=== PATIENT | male | born 1945 | race Caucasian/White ===

== ENCOUNTER → 2018-03-18 | Outpatient (CLI) | payer MEDICARE | END | disposition home or self-care (01) | LOC: RAD 15:25 | PROVIDERS: ATTEND Neurological Surgery | DX: M47.817 Spondylosis without myelopathy or radiculopathy, lumbosacral region (principal); M41.86 Other forms of scoliosis, lumbar region | CPT/HCPCS: 72110 ==

== ENCOUNTER → 2018-05-20 | Outpatient (CLI) | payer MEDICARE | END | disposition home or self-care (01) | LOC: CFH 15:58 | PROVIDERS: ATTEND Neurological Surgery | DX: M25.551 Pain in right hip (principal); M25.552 Pain in left hip; M54.5 Low back pain | CPT/HCPCS: 73523 ==

== ENCOUNTER 2018-06-25 15:56 | Emergency (ER) | payer MEDICARE ==
[~2018-06-25] VITALS: Ht 203.2 cm; Wt 186.5 kg
--- NOTE | 2018-06-25 16:29 | NUR ---
PT PRESENTS TO ED WITH C/O RIGHT LOWER LEG REDNESS AND PAIN X 3 WEEKS, +3 PEDAL PULSE NOTED. PT ALSO NOTES SOB WITH EXERTION STARTING TODAY, DENIES CHEST PRESSURE/PAIN. PT A&O, RESPS EVEN AND UNLABORED. EKG TAKEN IN TRIAGE. ALL MONITORS APPLIED. PT PROVIDED WITH WARM BLANKET. CALL LIGHT IN REACH. AWAITING MD AND ORDERS.
--- NOTE | 2018-06-25 16:35 | NUR ---
THELMA OLMSTEAD AT BEDSIDE.
[2018-06-25] MEDS ORDERED: HYDR-3307 PO (17:18)
[2018-06-25] MEDS ORDERED: EXEN2PEN SQ (17:18)
[2018-06-25] MEDS ORDERED: CARV12.52 PO (17:18)
[2018-06-25] MEDS ORDERED: ATOR20TA37 PO (17:18)
[2018-06-25] MEDS ORDERED: MAGNESIUM PO (17:18)
[2018-06-25] MEDS ORDERED: DILTIAZEM PO (17:18)
[2018-06-25] MEDS ORDERED: HYDR-3342 PO (17:18)
[2018-06-25] MEDS ORDERED: INSULIN 70/30 SQ (17:18)
[2018-06-25] MEDS ORDERED: APIX5TAB PO (17:18)
[2018-06-25] MEDS ORDERED: GLIP10TA13 PO (17:18)
[2018-06-25] MEDS ORDERED: MULT-516 PO (17:18)
[2018-06-25] MEDS ORDERED: FURO20TA3 PO (17:18)
[2018-06-25] MEDS ORDERED: OMEPRAZOLE DR PO (17:18)
[2018-06-25] MEDS ORDERED: GABA300C10 PO (17:18)
[2018-06-25] MEDS ORDERED: TAMSULOSIN PO (17:18)
[2018-06-25] MEDS ORDERED: LOSA50TA14 PO (17:18)
--- NOTE | 2018-06-25 17:19 | NUR ---
PT RESTING ON GURNEY, A&O, RESPS EVEN AND UNLABORED. 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 PT HAS NO COMPLAINT AT THIS TIME, AWAITING US AND DISPO.
[2018-06-25 17:30] LABS: BASOPHILS # (AUTO) 0.02 x10^3/uL (0-0.1); BASOPHILS % (AUTO) 0 % (0-1); EOSINOPHILS % (AUTO) 4 % (1-7); LYMPHOCYTES # (AUTO) 2.26 x10^3/uL (1-3.4); LYMPHOCYTES % (AUTO) 22 % (22-44); MD NO; MEAN CORPUSCULAR HEMOGLOBIN 31.1 pg (27.5-34.5); MEAN CORPUSCULAR HGB CONC 33.7 g/dL (33.2-36.2); MEAN CORPUSCULAR VOLUME 92.3 fL (81-97); MEAN PLATELET VOLUME 7.9 fL (7.4-10.4); MONOCYTES # (AUTO) 0.88 x10^3/uL (0.2-0.8); MONOCYTES % (AUTO) 9 % (2-9); NEUTROPHILS # (AUTO) 6.64 x10^3/uL (1.8-6.8); NEUTROPHILS % (AUTO) 65 % (42-75); PLATELET COUNT 252 x10^3/uL (130-400); RED BLOOD COUNT 4.52 x10^6/uL (4.38-5.82); RED CELL DISTRIBUTION WIDTH 13.9 % (9.4-14.8)
[2018-06-25 17:36] LABS: INTERNATIONAL NORMALIZED RATIO 0.93 (0.93-1.1); PROTHROMBIN TIME 9.8 Seconds (9.6-11.5)
[2018-06-25 17:38] LABS: ALBUMIN 3.5 g/dL (3.4-5.0); ANION GAP 5 mmol/L (5-15); CALCIUM 8.9 mg/dL (8.5-10.1); CHLORIDE 107 mmol/L (98-107); CREATININE 1.12 mg/dL (0.7-1.3)
[2018-06-25 18:00] VITALS: BP 134/62
--- NOTE | 2018-06-25 18:41 | NUR ---
pt given dc instructions and script. pt eduated regarding dc rx for omnicef. pt a&o, resps even and unlabored, nadn at dc. pt amb to dc desk with steady gait, accompanied by .
== END 2018-06-25 18:41 | disposition home or self-care (01) ==
LOC: ED 17:27
DX: L03.115 Cellulitis of right lower limb (principal); E11.9 Type 2 diabetes mellitus without complications; I25.2 Old myocardial infarction; I48.91 Unspecified atrial fibrillation
CPT/HCPCS: 36415; 71045; 80048; 82040; 85025; 85610; 93005; 99284

== ENCOUNTER 2018-07-10 06:12 | Observation (INO) | payer MEDICARE ==
[~2018-07-10] VITALS: Ht 203.2 cm; Wt 160.2 kg
[~2018-07-10 06:12] MED LIST: APIX5TAB PO; ATOR20TA37 PO; CARV12.52 PO; DILTIAZEM PO; EXEN2PEN SQ; FURO20TA3 PO; GABA300C10 PO; GLIP10TA13 PO; HYDR-3307 PO; HYDR-3342 PO; INSULIN 70/30 SQ; LOSA50TA14 PO; MAGNESIUM PO; MULT-516 PO; OMEPRAZOLE DR PO; TAMSULOSIN PO
[2018-07-10] MEDS ORDERED: ASPIRIN 81 MG TABLET CHEW PO ONE (06:30)
[2018-07-10] MEDS ORDERED: MORPHINE SULFATE 4 MG/ML, 1ML IVPush ONE (06:30)
[2018-07-10] MEDS ORDERED: SODIUM CHLORIDE FLUSH 10ML SYR IVF ONE (06:30)
--- NOTE | 2018-07-10 06:30 | NUR ---
FIRST CONTACT WITH PT. PT C/O CP RADIATING TO BACK SINCE LAST NIGHT. PAIN LEVEL IS 10/10 AT THIS TIME. PT DENIES N/V/D NOW. PT HAS HX OF A-FIB/OK. NSR ON FIRST DYER WITHOUT ECTOPY RATE 80'S AT THIS TIME. PT'S AOX4. RESPS EVEN AND UNLABORED. ALL MONITORS IN PLACE. CALL LIGHT WITHIN REACH. AWAITING EDMD ASSESSMENT.
--- NOTE | 2018-07-10 06:36 | NUR ---
PT IN CT NOW.
[2018-07-10] MEDS ORDERED: MORPHINE SULFATE 4 MG/ML, 1ML ONE (06:39)
[2018-07-10] MEDS ORDERED: ASPIRIN 81 MG TABLET CHEW ONE (06:39)
[2018-07-10 06:48] LABS: BASOPHILS # (AUTO) 0.05 x10^3/uL (0-0.1); BASOPHILS % (AUTO) 1 % (0-1); EOSINOPHILS # (AUTO) 0.26 x10^3/uL (0-0.4); EOSINOPHILS % (AUTO) 2 % (1-7); LYMPHOCYTES # (AUTO) 2.78 x10^3/uL (1-3.4); LYMPHOCYTES % (AUTO) 24 % (22-44); MD NO; MEAN CORPUSCULAR HEMOGLOBIN 31.1 pg (27.5-34.5); MEAN CORPUSCULAR VOLUME 91.6 fL (81-97); MEAN PLATELET VOLUME 7.9 fL (7.4-10.4); MONOCYTES # (AUTO) 0.97 x10^3/uL (0.2-0.8); MONOCYTES % (AUTO) 8 % (2-9); NEUTROPHILS # (AUTO) 7.52 x10^3/uL (1.8-6.8); NEUTROPHILS % (AUTO) 65 % (42-75); PLATELET COUNT 313 x10^3/uL (130-400); RED BLOOD COUNT 4.64 x10^6/uL (4.38-5.82); RED CELL DISTRIBUTION WIDTH 14.2 % (9.4-14.8)
--- NOTE | 2018-07-10 06:48 | NUR ---
PT MEDICATED PER EMAR. PT TOLERATED WELL.
[2018-07-10] MEDS ORDERED: OMNIPAQUE 350 MG/ML, 150 ML BOTTLE ONE (06:55)
[2018-07-10 07:00] LABS: ALANINE AMINOTRANSFERASE 25 U/L (12-78); ALBUMIN 3.7 g/dL (3.4-5.0); ANION GAP 9 mmol/L (5-15); CALCIUM 9.1 mg/dL (8.5-10.1); CHLORIDE 108 mmol/L (98-107); CREATININE 1.37 mg/dL (0.7-1.3)
--- NOTE | 2018-07-10 07:03 | NUR ---
report given to jesse mark.
[2018-07-10 07:05] LABS: ALKALINE PHOSPHATASE 93 U/L (45-117); BILIRUBIN,TOTAL 0.5 mg/dL (0.2-1.0); TOTAL PROTEIN 7.3 g/dL (6.4-8.2); TROPONIN I < 0.015 ng/mL (0.000-0.045)
--- NOTE | 2018-07-10 07:40 | NUR ---
REC BS REPORT PT RESTING A04 UP TO BS FOR UA IN URINAL PT STABLE PILLOW PROVIDED AND FLUIDS
[2018-07-10] MEDS ORDERED: MAALOX/HYOSCYAMINE/LIDOCAINE 45 ML BTL PO ONE ×2 (08:00→09:30)
[2018-07-10] MEDS ORDERED: INSULIN SQ SCH (09:30)
[2018-07-10] MEDS ORDERED: NITROGLYCERIN 0.4 MG/SPRAY SL PRN (09:30)
[2018-07-10] MEDS ORDERED: ACETAMINOPHEN 325 MG TABLET PO PRN (09:30)
[2018-07-10] MEDS ORDERED: morphine SULFATE 10 MG/ML, 1ML IVPush PRN (09:30)
[2018-07-10] MEDS ORDERED: HYDROcodone/APAP 10/325 MG TABLET PO PRN (09:30)
[2018-07-10] MEDS ORDERED: AMIODARONE 200 MG TABLET ONE (09:41)
[2018-07-10] MEDS ORDERED: GABAPENTIN 300 MG CAPSULE ONE (09:55)
[2018-07-10] MEDS ORDERED: MAALOX/HYOSCYAMINE/LIDOCAINE 45 ML BTL ONE (09:55)
[2018-07-10] MEDS ORDERED: CEFTRIAXONE PMX 2GM/50ML 50 ML ONE (09:55)
[2018-07-10 09:59] LABS: TROPONIN I < 0.015 ng/mL (0.000-0.045)
[2018-07-10] MEDS: GABAPENTIN 300 MG CAPSULE PO SCH ×3 (10:01→20:57)
[2018-07-10] MEDS: CEFTRIAXONE PMX 2GM/50ML 50 ML IV SCH (10:11)
[2018-07-10 10:33] LABS: HEMOGLOBIN A1C 7.6 % (4.2-6.3)
[2018-07-10] MEDS: LOSARTAN 50MG TABLET PO SCH (10:53)
[2018-07-10] MEDS: CARVEDILOL 6.25 MG TABLET PO SCH ×2 (10:53→21:01)
[2018-07-10] MEDS: MULTIVITAMIN 1 TABLET PO SCH (10:54)
[2018-07-10 11:54] VITALS: BP 149/61
[2018-07-10 12:03] VITALS: BP 150/72
[2018-07-10] MEDS: INSULIN LISPRO 100 UNITS/ML, PEN SQ-INSULIN SCH ×3 (13:00→20:56)
[2018-07-10] MEDS: TAMSULOSIN 0.4 MG CAP.ER.24H PO SCH (15:40)
[2018-07-10] MEDS: LACTOBACILLUS CHEW TABLET PO SCH ×2 (15:40→20:57)
[2018-07-10] MEDS: OMEPRAZOLE 20 MG CAPSULE.DR PO SCH (15:42)
[2018-07-10] MEDS: MAGNESIUM OXIDE 400 MG TABLET PO SCH (15:43)
[2018-07-10] MEDS: ISOSORBIDE DINITRATE 10 MG TABLET PO SCH ×2 (15:46→21:01)
[2018-07-10 16:07] LABS: TROPONIN I < 0.015 ng/mL (0.000-0.045)
[2018-07-10] MEDS: INSULIN HUMULIN 70/30, 3ML PEN SQ-INSULIN SCH (17:31)
[2018-07-10 19:27] VITALS: BP 144/73
[2018-07-10 20:53] VITALS: BP 122/71
[2018-07-10] MEDS ORDERED: ATORVASTATIN 20 MG TABLET PO SCH (21:00)
[2018-07-10] MEDS: APIXABAN 5 MG TABLET PO SCH (21:01)
[2018-07-10] MEDS ORDERED: MELATONIN 5 MG TABLET PO PRN (22:30)
[2018-07-11] MEDS ORDERED: CALCIUM CARBONATE 500 MG TAB.CHEW PO PRN
[2018-07-11 00:26] VITALS: BP 145/80
[2018-07-11 05:16] LABS: BASOPHILS # (AUTO) 0.08 x10^3/uL (0-0.1); BASOPHILS % (AUTO) 1 % (0-1); EOSINOPHILS % (AUTO) 3 % (1-7); LYMPHOCYTES # (AUTO) 2.34 x10^3/uL (1-3.4); LYMPHOCYTES % (AUTO) 25 % (22-44); MD NO; MEAN CORPUSCULAR HGB CONC 33.8 g/dL (33.2-36.2); MEAN CORPUSCULAR VOLUME 91.7 fL (81-97); MEAN PLATELET VOLUME 7.8 fL (7.4-10.4); MONOCYTES # (AUTO) 0.92 x10^3/uL (0.2-0.8); MONOCYTES % (AUTO) 10 % (2-9); NEUTROPHILS # (AUTO) 5.65 x10^3/uL (1.8-6.8); NEUTROPHILS % (AUTO) 61 % (42-75); PLATELET COUNT 274 x10^3/uL (130-400); RED BLOOD COUNT 4.35 x10^6/uL (4.38-5.82); RED CELL DISTRIBUTION WIDTH 14.2 % (9.4-14.8)
[2018-07-11 05:35] LABS: CHLORIDE 109 mmol/L (98-107)
[2018-07-11 05:57] LABS: ANION GAP 8 mmol/L (5-15); CALCIUM 8.9 mg/dL (8.5-10.1); CREATININE 1.39 mg/dL (0.7-1.3)
[2018-07-11] MEDS: INSULIN LISPRO 100 UNITS/ML, PEN SQ-INSULIN SCH ×2 (07:00→12:18)
[2018-07-11 07:39] VITALS: BP 141/83
[2018-07-11] MEDS: INSULIN HUMULIN 70/30, 3ML PEN SQ-INSULIN SCH (08:00)
[2018-07-11] MEDS ORDERED: REGADENOSON 0.4 MG/5 ML SYRINGE ONE (08:12)
[2018-07-11] MEDS: GABAPENTIN 300 MG CAPSULE PO SCH ×2 (08:24→17:09)
[2018-07-11] MEDS: OMEPRAZOLE 20 MG CAPSULE.DR PO SCH (08:24)
[2018-07-11] MEDS ORDERED: SENNA/DOCUSATE TABLET PO SCH (09:00)
[2018-07-11] MEDS: APIXABAN 5 MG TABLET PO SCH (10:38)
[2018-07-11] MEDS: MULTIVITAMIN 1 TABLET PO SCH (10:38)
[2018-07-11] MEDS: LACTOBACILLUS CHEW TABLET PO SCH ×2 (10:38→17:08)
[2018-07-11] MEDS: MAGNESIUM OXIDE 400 MG TABLET PO SCH (10:38)
[2018-07-11] MEDS: TAMSULOSIN 0.4 MG CAP.ER.24H PO SCH (10:39)
[2018-07-11] MEDS: LOSARTAN 50MG TABLET PO SCH (10:39)
[2018-07-11] MEDS: CARVEDILOL 6.25 MG TABLET PO SCH (10:39)
[2018-07-11] MEDS: ISOSORBIDE DINITRATE 10 MG TABLET PO SCH (10:42)
[2018-07-11] MEDS: CEFTRIAXONE PMX 2GM/50ML 50 ML IV SCH (11:17)
[2018-07-11 13:35] VITALS: BP 130/65
[2018-07-11] MEDS ORDERED: ACID1TAB7 PO (15:59)
[2018-07-11] MEDS ORDERED: CALC200T24 PO (15:59)
[2018-07-11] MEDS ORDERED: CARV12.52 PO (15:59)
[2018-07-11] MEDS ORDERED: INSU100I11 SQ-INSULIN (15:59)
[2018-07-15] MEDS ORDERED: EXENATIDE MICROSPHERES 2 MG SQ SCH (09:00)
== END 2018-07-11 17:55 | disposition home or self-care (01) ==
LOC: ED 06:35 → INTOOBSV 07:42 → UNDOADMOB 07:42 → EDIP 07:42 → 5SO 11:52 → EDIP 11:52 → 5SO 11:52 → UNDODISOB 07-11 17:55
PROVIDERS: ADMIT Internal Medicine; ATTEND Internal Medicine
DX: R07.9 Chest pain, unspecified (principal); N17.9 Acute kidney failure, unspecified; L03.115 Cellulitis of right lower limb; I25.2 Old myocardial infarction; I48.91 Unspecified atrial fibrillation; I70.0 Atherosclerosis of aorta; K21.9 Gastro-esophageal reflux disease without esophagitis; R13.10 Dysphagia, unspecified; E66.01 Morbid (severe) obesity due to excess calories; R91.1 Solitary pulmonary nodule; I12.9 Hypertensive chronic kidney disease with stage 1 through stage 4 chronic kidney disease, or unspecified chronic kidney disease; N18.3 Chronic kidney disease, stage 3 (moderate); E11.22 Type 2 diabetes mellitus with diabetic chronic kidney disease; Z79.01 Long term (current) use of anticoagulants; Z68.38 Body mass index [BMI] 38.0-38.9, adult; Z80.52 Family history of malignant neoplasm of bladder; Z83.3 Family history of diabetes mellitus
CPT/HCPCS: 36415; 71045; 71275; 74174; 74220; 78452; 80048; 80053; 82962; 83036; 83880; 84484; 85025; 93005; 96365; 96366; 96372; 96375; 99284; A9502; C9898; G0378; J0696; J1815; Q9967; 99285; J2785

== ENCOUNTER → 2020-03-20 | Outpatient (CLI) | payer MEDICARE ==
[~2020-03-20] MED LIST changes: +ACID1TAB7 PO; +CALC200T24 PO; +CARV6.2512 PO; +GABA-827 PO; +HYDR-3246 PO; -HYDR-3307 PO; +INSU100I11 SQ-INSULIN; +INSULIN SC; +LOSA25TA25 PO; +MAGN250T8 PO; +TAMS-11 PO
[2020-03-20 13:43] LABS: MICROSCOPIC AUTO
[2020-03-20 13:52] LABS: ALBUMIN 3.7 g/dL (3.4-5.0); ANION GAP 6 mmol/L (5-15); CALCIUM 9.1 mg/dL (8.5-10.1); CHLORIDE 112 mmol/L (98-107)
[2020-03-20 13:55] LABS: ALANINE AMINOTRANSFERASE 28 U/L (12-78); ALKALINE PHOSPHATASE 92 U/L (45-117); BILIRUBIN,TOTAL 0.6 mg/dL (0.2-1.0); CREATININE 1.19 mg/dL (0.7-1.3); TOTAL PROTEIN 6.9 g/dL (6.4-8.2)
== END | disposition home or self-care (01) ==
LOC: STAR 12:15
PROVIDERS: ATTEND Urology
DX: Z01.812 Encounter for preprocedural laboratory examination (principal); Z20.828 Contact with and (suspected) exposure to other viral communicable diseases; N35.919 Unspecified urethral stricture, male, unspecified site
CPT/HCPCS: 80053; 81001; 87086; 87635; 93005

== ENCOUNTER 2020-03-26 06:37 | Day surgery (SDC) | payer MEDICARE ==
[~2020-03-26] VITALS: Ht 203.2 cm; Wt 166.0 kg
[2020-03-26] MEDS ORDERED: CHLORHEXIDINE 15 ML UDC MM ONE (07:00)
[2020-03-26] MEDS ORDERED: LACTATED RINGERS 1,000 ML IV SCH (07:00)
[2020-03-26 07:20] VITALS: BP 151/74
[2020-03-26] MEDS ORDERED: FENTANYL PF 250 MCG/5ML ONE (08:14)
[2020-03-26] MEDS ORDERED: LIDOCAINE-MPF 2% ,5ML ONE (08:27)
[2020-03-26] MEDS ORDERED: PROPOFOL 10 MG/ML, 20ML ONE ×2 (08:27)
[2020-03-26] MEDS ORDERED: ROCURONIUM 10MG/ML,5ML ONE (08:27)
[2020-03-26] MEDS ORDERED: SUCCINYLCHOLINE 20 MG/ML, 10ML ONE (08:27)
[2020-03-26] MEDS ORDERED: ONDANSETRON 2MG/ML, 2ML ONE (08:27)
[2020-03-26] MEDS ORDERED: GLYCOPYRROLATE 0.2MG/1ML, 5ML ONE (08:27)
[2020-03-26] MEDS ORDERED: CEFAZOLIN 1,000 MG ONE (08:27)
[2020-03-26] MEDS ORDERED: PHENYLEPHRINE 10 MG/ML ONE (08:27)
[2020-03-26] MEDS ORDERED: NEOSTIGMINE 1 MG/ML, 10ML ONE (08:27)
[2020-03-26] MEDS ORDERED: MEPERIDINE/PF 25MG/0.5ML IVPush PRN (08:30)
[2020-03-26] MEDS ORDERED: hydrALAzine 20 MG/ML, 1ML IV PRN (08:30)
[2020-03-26] MEDS ORDERED: EPHEDRINE 50 MG/ML, 1ML IVPush PRN (08:30)
[2020-03-26] MEDS ORDERED: OXYcodone 5 MG/5 ML ORAL.SOL UDC PO PRN (08:30)
[2020-03-26] MEDS ORDERED: METHOCARBAMOL 1,000 MG in DEXTROSE 5% 100 ML IV PRN (08:30)
[2020-03-26] MEDS ORDERED: PROMETHAZINE 25 MG/ML, 1ML IVPush PRN (08:30)
[2020-03-26] MEDS ORDERED: ONDANSETRON 2MG/ML, 2ML IVPush PRN (08:30)
[2020-03-26] MEDS ORDERED: LABETALOL 5MG/ML, 20ML IV PRN (08:30)
[2020-03-26] MEDS ORDERED: HYDROmorphone 1 MG/ML, 1ML INJ IVPush PRN (08:30)
[2020-03-26] MEDS ORDERED: ACETAMINOPHEN 325 MG TABLET PO PRN (08:30)
[2020-03-26] MEDS ORDERED: FENTANYL PF 100 MCG/2ML IV PRN (08:30)
[2020-03-26] MEDS ORDERED: OPIUM/BELLADONNA SUPP.RECT 16.2-60 MG PR PRN (09:30)
[2020-03-26] MEDS ORDERED: ONDANSETRON 2MG/ML, 2ML IV PRN (09:30)
[2020-03-26] MEDS ORDERED: HYDROcodone/APAP 5/325 TABLET PO PRN (09:30)
[2020-03-26] MEDS ORDERED: FENTANYL PF 100 MCG/2ML ONE (09:37)
[2020-03-26] MEDS ORDERED: ACETAMINOPHEN 650 MG/20.3 ML UDC ONE (09:37)
[2020-03-26] MEDS ORDERED: OXYcodone 5 MG/5 ML ORAL.SOL UDC ONE (09:38)
[2020-03-26] MEDS ORDERED: OPIUM/BELLADONNA SUPP.RECT 16.2-60 MG ONE (10:02)
== END 2020-03-26 13:00 | disposition home or self-care (01) ==
LOC: OUT 06:37
PROVIDERS: ATTEND Urology
DX: N35.919 Unspecified urethral stricture, male, unspecified site (principal); N40.0 Benign prostatic hyperplasia without lower urinary tract symptoms; E11.22 Type 2 diabetes mellitus with diabetic chronic kidney disease; I12.9 Hypertensive chronic kidney disease with stage 1 through stage 4 chronic kidney disease, or unspecified chronic kidney disease; N18.9 Chronic kidney disease, unspecified; I48.91 Unspecified atrial fibrillation; I25.2 Old myocardial infarction; K21.9 Gastro-esophageal reflux disease without esophagitis; Z79.01 Long term (current) use of anticoagulants; Z79.899 Other long term (current) drug therapy
CPT/HCPCS: 52276; 82962; C1769; J0330; J0690; J2370; J2405; J2704; J2710; J3010; J7120